=== PATIENT | female | born 1940 | race Caucasian/White ===

== ENCOUNTER 2018-09-11 07:30 | Inpatient (IN) | payer OTHER ==
[~2018-09-11] VITALS: Ht 175.3 cm; Wt 68.6 kg
[2018-09-11 07:31] VITALS: BP 112/50
[2018-09-11 07:47] LABS: HEMOGLOBIN 12.6 gm/dL (12.0-15.0); MCH 32.1 pg (26.0-34.0); RBC 3.92 mil/uL (4.20-5.00); RDW 14.3 % (10.5-14.5); WBC 6.4 thou/uL (4.0-11.0)
[2018-09-11 07:57] LABS: CALCIUM 9.3 mg/dL (8.5-10.1); CREATININE 0.9 mg/dL (0.6-1.0); POTASSIUM 4.1 mmol/L (3.5-5.1)
[2018-09-11 08:04] LABS: ALBUMIN 3.7 g/dL (3.4-5.0); DIRECT BILIRUBIN 0.1 mg/dL (<0.1-0.3); TOTAL BILIRUBIN 0.5 mg/dL (<0.1-1.0); TOTAL PROTEIN 6.8 g/dL (6.4-8.2)
[2018-09-11 09:22] VITALS: BP 118/91
[2018-09-11 10:04] VITALS: BP 114/73
[2018-09-11 11:00] VITALS: BP 124/86
--- NOTE | 2018-09-11 11:55 | NUR ---
RECEIVED OT ORDER FOR EVALUATION. WILL AWAIT ORTHO CONSULT AND POST-OP ORDERS IF SURGERY IS INDICATED.
--- NOTE | 2018-09-11 12:32 | NUR ---
PT RECIEVED TO RM 417 AT 1030 FROM THE ER. PT IN NO PAIN. LT ANKLE FX AFTER FALLING IN THE SHOWER. PT HAS DEMEMTIA AND VERY FORGETFUL. SISTER, PEREZ AND PT SON DPOA-SISTER TO BRING COPY. FRACTURE SET UNDER KETAMINE IN THE ER AND SPLINT APPLIED. PT NOTED TO HAVE IRREGULAR HEART BEAT AND WILL BE TRANSFERRED TO [facility] TO ENABLE TELE MONITORING.
[2018-09-11 14:20] VITALS: BP 99/44
[2018-09-11] MEDS ORDERED: RAZADYNE ER16 MG PO (15:29)
[2018-09-11] MEDS ORDERED: DIGOXIN125 MCG PO (15:30)
[2018-09-11] MEDS ORDERED: CO Q-10100 MG PO (15:30)
[2018-09-11] MEDS ORDERED: WELLBUTRIN SR100 MG PO (15:31)
[2018-09-11] MEDS ORDERED: VITAMIN D2000 UNIT PO (15:31)
[2018-09-11] MEDS ORDERED: LASIX 20 MG TAB20 MG PO (15:32)
[2018-09-11] MEDS ORDERED: VITAMINC500 PO (15:32)
[2018-09-11] MEDS ORDERED: POTASSIUM CHLO20 ME2 PO (15:33)
[2018-09-11] MEDS ORDERED: ZOFRAN ODT4 MG PO (15:33)
[2018-09-11] MEDS ORDERED: XANAX 0.25 MG0.25 MG PO (15:34)
[2018-09-11] MEDS ORDERED: MELATONIN3 MG PO (15:34)
[2018-09-11] MEDS ORDERED: COLACE100 MG PO (15:35)
[2018-09-11] MEDS ORDERED: IMODIUM A-D2 M1 PO (15:36)
[2018-09-11] MEDS ORDERED: MILK OF MA400 MG/5 M PO (15:37)
[2018-09-11] MEDS ORDERED: BISACODYL SUPP10 MG RECTAL (15:37)
[2018-09-11] MEDS ORDERED: CORLANOR7.5 MG PO (15:39)
[2018-09-11] MEDS ORDERED: PEPCID20 MG PO (15:39)
[2018-09-11] MEDS ORDERED: ZOLOFT25 MG PO (15:40)
[2018-09-11] MEDS ORDERED: NAMENDA XR28 MG PO (15:41)
[2018-09-11] MEDS ORDERED: VITAMIN B122500 MCG SUBLING (15:41)
[2018-09-11] MEDS ORDERED: TYLENOL325 M1 PO (15:43)
[2018-09-11] MEDS ORDERED: SENIOR TABS1 EACH PO (15:44)
--- NOTE | 2018-09-11 16:10 | EKG ---
[address] [place] [address] ELECTROCARDIOGRAM REPORT Name: EDITH OWENS Room #: 454-P ADM IN M.R.#: [id number] ������������������ Admission: 09/11/18 ������������������ Attend Phys: Panchito Esparza MD Discharge: ������������������ Date of : 38 Report #: [id number] ����������������������������������������������������������������� [id number] THIS REPORT FOR: //name// [facility] ED Test Date: 2018-09-11 Test Time: 07:46:39 Pat Name: EDITH OWENS Department: Room: [facility] Gender: F Compliance Representative: WALI : 1940 Requested By: Sonya Jaramillo Order Number: [id number] MD: Kadeem Cabrera Measurements Intervals [place] Rate: 75 P: 62 MI: 233 QRS: 67 QRSD: 94 T: 188 QT: 470 QTc: 470 Interpretive Statements Sinus rhythm Supraventricular bigeminy Anteroseptal infarct, age indeterminate No previous ECG available for comparison Electronically Signed On 09-11-2018 16:10:43 CDT by Kadeem Cabrera [email or web address] ��������������������������������������������� <ELECTRONICALLY SIGNED> ���������������������������������������� By: Kadeem Cabrera MD ��������������������������������������������� 09/11/18 1610 5 5 Kadeem Cabrera MD /ALTA
--- NOTE | 2018-09-11 16:27 | 2DMMODE ---
[facility] [place] [address] 2 D/M-MODE ECHOCARDIOGRAM Name: EDITH OWENS Room #: 454-P [facility] IN M.R.#: [id number] ������������� Admission: 09/11/18 ������������� Attend Phys: Panchito Esparza, Discharge: ��� ������������� ��� Date of : 38 Date of Service: 09/11/18 1627 �� Report #: [id number] �������� ��������������������������������������������[id number] THIS REPORT FOR: //name// APPROVED REPORT Study performed: 09/11/2018 15:33:18 EXAM: Comprehensive 2D, Doppler, and color-flow Echocardiogram Patient Location: Bedside Status: KRYSTAL BSA: 1.83 HR: 88 bpm BP: 99/44 mmHg Rhythm: IRREGULAR Other Information Study Quality: Good Indications Arrhythmia, surgery clearance. Hx: CABG, AVR. 2D Dimensions RVDd: 40.98 mm IVSd: 6.08 (7-11mm) LVOT Diam: 19.95 (18-24mm) LVDd: 53.10 mm PWd: 10.53 (7-11mm) LVDs: 47.41 (25-40mm) Aortic Root: 33.32 mm Volumes Left Atrial Volume (Systole) Single Plane 4CH: 85.32 mL Single Plane 2CH: 103.46 mL LA ESV Index: 55.00 mL/m2 Aortic Valve AoV Peak Juanpablo.: 2.68 m/s AO Peak Gr.: 28.70 mmHg LVOT Max P.10 mmHg AO Mean Gr.: 16.00 mmHg AO V2 Mean: 1.90 m/s LVOT Max V: 0.72 m/s AO V2 VTI: 50.71 cm DARRYL Vmax: 0.84 cm2 Mitral Valve E/A Ratio: 3.2 [facility] [address] [place] [place] [address] 2 D/M-MODE ECHOCARDIOGRAM Name: EDITH OWENS Room #: 454-P ADM IN .R.#: [id number] ������������� Admission: 09/11/18 ������������� Attend Phys: Panchito Esparza, Discharge: ��� ������������� ��� Date of : 38 Date of Service: 09/11/18 1627 �� Report #: [id number] �������� ��������������������������������������������[id number] MV Decel. Time: 127.08 ms MV E Max Juanpablo.: 1.34 m/s MV A Juanpablo.: 0.42 m/s MV PHT: 36.85 ms IVRT: 58.82 ms Pulmonary Valve PV Peak Juanpablo.: 0.96 m/s PV Peak Gr.: 3.69 mmHg Tricuspid Valve TR Peak Juanpablo.: 3.70 m/s RAP Estimate: 10.00 mmHg TR Peak Gr.: 55.00 mmHg PA Pressure: 65.00 mmHg Left Ventricle The left ventricle is normal size. There is global hypokinesis of the left ventricle. There is normal left ventricular wall thickness. Left ventricular systolic function is severely decreased. LVEF is 30%. This study is not technically sufficient to allow evaluation of the LV diastolic function. Right Ventricle The right ventricle is normal size. Right ventricle is mildly hypokinetic. Atria Left atrium is severely dilated. Right atrium is mildly dilated. Aortic Valve Bioprosthetic aortic valve is present. (Size/manufacture unknown) Peak gradient of 24mmHg mean of 14mmHg. Trace aortic regurgitation. Mitral Valve Mitral valve leaflets are moderately thickened. Moderate to severe mitral regurgitation Tricuspid Valve The tricuspid valve is normal in structure. Moderate to severe tricuspid regurgitation. Estimated PAP is 65mmHg. Pulmonic Valve The pulmonary valve is normal in structure. Mild pulmonic regurgitation. [facility] [address] [place] [address] 2 D/M-MODE ECHOCARDIOGRAM Name: EDITH OWENS Room #: 454-P ADM IN M.R.#: [id number] ������������� Admission: 09/11/18 ������������� Attend Phys: Panchito Esparza, Discharge: ��� ������������� ��� Date of : 38 Date of Service: 09/11/18 1627 �� Report #: [id number] �������� ��������������������������������������������[id number] Great Vessels The aortic root is normal in size. The ascending aorta is normal in size. IVC is normal in size and collapses <50% with inspiration. Pericardium There is no pericardial effusion. <Conclusion> The left ventricle is normal size. LVEF is 30%. There is global hypokinesis of the left ventricle. Left atrium is severely dilated. Right atrium is mildly dilated. Bioprosthetic aortic valve is present. (Size/manufacture unknown) Peak gradient of 24mmHg mean of 14mmHg. Trace aortic regurgitation. Mitral valve leaflets are moderately thickened. Moderate to severe mitral regurgitation The tricuspid valve is normal in structure. Moderate to severe tricuspid regurgitation. Estimated PAP is 65mmHg. The pulmonary valve is normal in structure. Mild pulmonic regurgitation. There is no pericardial effusion. ��������������������������������������������� <ELECTRONICALLY SIGNED> ���������������������������������������� By: Pilo Webb MD ��������������������������������������������� 09/11/18 1627 1627 1627 Pilo Webb MD /INF
[2018-09-11 19:48] VITALS: BP 94/50
[2018-09-12] VITALS (9 sets, daily range): BP systolic 90–114; BP diastolic 38–69
--- NOTE | 2018-09-12 05:04 | NUR ---
Pt. rested quietly at intervals during the night when checked on during frequent rounds. She c/o pain to her left ankle and po pain meds given (see emar) with some relief. Left ankle soft splint clean,dry and intact. Ice packs applied to the area throughout the shift. Bed alarm is on.
--- NOTE | 2018-09-12 11:10 | HC ---
[facility] [place] [address] CONSULTATION Name: EDITH OWENS Room #: 454-P [facility] IN ..#: [id number] Admission: 09/11/18 ������������������ Attend Phys: Panchito Esparza MD Discharge: ������������������ Date of : 39 Report #: [id number] THIS REPORT FOR: //name// CC: FAM unknown Panchito Esparza DATE OF SERVICE: 09/11/2018 CHIEF COMPLAINT: Left ankle fracture, status post fall. HISTORY OF PRESENT ILLNESS: The patient is a pleasantly confused 78-year-old female who was admitted through the Emergency Department at [facility] yesterday status post fall in the shower. The patient reports that she does not remember having a fall recently, but has been told that she fell, so she is aware. She says that she hurt her ankle in the fall, but is unsure of the actual injury to the ankle. The patient denies any other pain, shortness of breath or loss of consciousness with the fall. The patient reports that she typically ambulates without assistance prior to this fall, although the patient is an unreliable historian and there is no family at bedside at the time of consult. ALLERGIES: No known drug allergies. MEDICATIONS: Please see medical record for complete list of medications. PAST MEDICAL AND SURGICAL HISTORY: Significant for CAD, status post CABG, advanced dementia, COPD. SOCIAL HISTORY: The patient denies any drug, tobacco or alcohol use. She resides at [facility] and per patient reports she typically ambulates without assistance. PHYSICAL EXAMINATION: VITAL SIGNS: Temperature 36.9, blood pressure 91/40, pulse oximetry 98%, height 175 cm, weight 68 kilos. GENERAL: The patient is awake and alert, in no acute distress. EXTREMITIES: Left lower extremity is neurovascularly intact; calf, proximal to the splint, is soft and nontender. Splint appears to be fitting well, no signs of skin breakdown. The patient is able to wiggle toes distal to splint and is neurovascularly intact distal to the splint. Right lower extremity is neurovascularly intact, calf soft and nontender. LABORATORY DATA: White blood cell count 6.4, red blood cell count 3.9, hemoglobin 12.6, BUN 25, creatinine 0.9. IMAGING: Post-reduction views of the ankle performed in the Emergency [address] [address] CONSULTATION Name: EDITH OWENS Room #: 454-P [facility] IN M.R.#: [id number] Admission: 09/11/18 ������������������ Attend Phys: Panchito Esparza MD Discharge: ������������������ Date of : 39 Report #: [id number] Department yesterday show interval reduction and casting of the distal fibular and medial malleolar fractures and reduction of the ankle, subluxation/dislocation. The alignment is near anatomic. Chest x-ray, impression shows no acute cardiopulmonary abnormality identified. Echocardiogram performed on 09/11/2018 shows LVEF of 30%. PLAN: Discussed the patient's diagnosis and treatment options today with the patient. Discussed risks, benefits, alternatives to treatment and the patient has elected to proceed with open reduction and internal fixation of left trimalleolar ankle fracture. She has been seen yesterday by Cardiology Services, who ordered an echocardiogram, following the results of this, they reported that her ejection fraction is 30% and that she has been cleared from a cardiovascular standpoint for surgery. We will plan to proceed with left ankle open reduction and internal fixation of medial and lateral malleoli fractures later this morning. We discussed that the patient will be nonweightbearing postoperatively, we also discussed the need for followup in the outpatient clinic to assess fracture healing. We will plan on proceeding with surgery later this morning. ��������������������������������������������� <ELECTRONICALLY SIGNED> ���������������������������������������� By: LYUDMILA Collins ��������������������������������������������� 09/12/18 1110 0755 0902 LYUDMILA Colilns /nt
--- NOTE | 2018-09-12 11:33 | NUR ---
TO OR AT 0930. SISTER IS POA AND GAVE VERBAL CONSENT OVER THE PHONE FOR SURGICAL CONSENT. PATIENT IS ORIENTED TO NAME ONLY - REORIENTS BUT VERY FORGETFUL.
--- NOTE | 2018-09-13 03:29 | NUR ---
ASSUMED CARE AROUND 1900. AXOX4. L ANKLE SX. ELEVATED. NO S/S ACUTE DISTRESS NOTED OR REPORTED AT THIS TIME. WILL CONT TO MONITOR FOR ANY CHANGES IN CONDITION.
[2018-09-13 04:48] VITALS: BP 101/46
[2018-09-13 07:25] VITALS: BP 106/59
--- NOTE | 2018-09-13 13:39 | NUR ---
DISCHARGE PLANNING. POST ACUTE CARE RECOMMENDED AT DISCHARGE. PATIENT REFERRAL FAXED TO [facility]. CALL RECEIVED FROM JOELLE. ACCEPTING OF PATIENT AT DISCHARGE. ANTICIPATED DC FOR TOMORROW. JOELLE AWARE. WILL COMPLETE DISCHARGE NEEDS AND FACILITATE TRANSPORTATION ONCE DISCHARGE ORDERS ARE COMPLETED PER ATTENDING. UNIT CM/SW AWARE.
--- NOTE | 2018-09-13 14:21 | NUR ---
PT ADMITTED RELATED TO L ANKLE FRACTURE; S/P ORIF WITH CAST. CM REVIEWED CHART AND SPOKE WITH CARE TEAM. CM CALLED PT'S SON/DPOA JOSE ANTONIO RUIZ AND HE INDICATED THAT SAMPLE WRAPPER PT HAD BEEN LIVING AT [facility] IN ASSISTED LIVING. HE INDICATED THAT PT HAD NOT BEEN USING ANY ASSISTIVE DEVICES SAMPLE WRAPPER AND THAT SHE HADN'T HAD ANY HOME HEALTH. HE INDICATED THAT HE WOULD BE RECEPTIVE TO POST ACUTE CARE STAY AT [facility] IF IT WAS RECEOMMENDED. CM TO FOLLOW INDICATED WITH DC PLANNING.
[2018-09-13 14:48] VITALS: BP 97/48
--- NOTE | 2018-09-13 16:56 | NUR ---
QUIET UNEVENTFUL DAY. STATES MINIMAL PAIN. SAT UP IN CHAIR FOR SEVERAL HOURS. TOLERAING DIET. UP TO BS WITH [address] ASSIST[address] FALL PRECAUTIONS IN PLACE. LEFT ANKLE DRESSING/SPLINT INTACT. HAVE MONITORED CLOSELY.
[2018-09-13 20:00] VITALS: BP 112/42
[2018-09-14 04:46] VITALS: BP 109/57
--- NOTE | 2018-09-14 05:43 | NUR ---
ASSUMED CARE OF PT AT 1900. A&O, ABLE TO ANSWER ORIENTATION QUESTIONS AND RESPONDED TO QUESTIONS W/ RELATED CONTENT. STATED PAIN WAS TOLERABLE MOST OF THE NOC UNTIL SHE COULD NOT SLEEP DUE TO PAIN. PAIN MED GIVEN X1, PT ABLE TO SLEEP. TOLERATED PAIN MED WELL, EASILY AROUSABLE AND VS STABLE. IV INFILTRATED. SHE REALLY DID NOT WANT A NEW ONE PLACED. CONTACTED STONER OUT, FLUIDS D/C'D AND OK TO LEAVE IV OUT AT THIS TIME DUE TO PT REQUEST, ADEQUATE ORAL INTAKE AND STABLE VS. DRESSING ON L LE C/D/I. ABLE TO TRANSFER WELL. CURRENTLY RESTING. PROGRESSING WELL TOWARDS POC GOALS.
[2018-09-14 08:37] VITALS: BP 114/76
[2018-09-14] MEDS ORDERED: MIRALAX17 GM PO (13:41)
[2018-09-14] MEDS ORDERED: ENOXAPARIN40 MG/0.1 SUBQ (13:41)
[2018-09-14] MEDS ORDERED: IPRAT-ALBUT 0.5-3 ML INH (13:41)
[2018-09-14] MEDS ORDERED: LIPITOR10 MG PO (13:41)
[2018-09-14 14:39] VITALS: BP 102/61
--- NOTE | 2018-09-14 15:14 | NUR ---
Assumed pt care this am, pt is oriented to self only. No IV access was noted. All po medication was taken. Pt is able to transfer from bed to the commode and is able to sit on the recliner for a few hours. Left leg dressing intact no draininage noted. No s/s of acute distress no complaints or discomnfort was verbalized by the pt. DC orders given, pt to go back to [facility] pt to be picked up at 4pm today. Will call to give report.
--- NOTE | 2018-09-18 11:42 | O ---
[facility] [place] [address] OPERATIVE REPORT Name: EDITH OWENS Room #: 454-P [facility] IN M.R.#: [id number] Admission: 09/11/18 ������������������ Attend Phys: Panchito Esparza MD Discharge: 09/14/18 ������������������ Date of : 39 Report #: [id number] THIS REPORT FOR: //name// CC: FAM unknown Panchito Esparza PREOPERATIVE DIAGNOSIS: Trimalleolar ankle fracture dislocation, status post reduction. POSTOPERATIVE DIAGNOSIS: Trimalleolar ankle fracture dislocation, status post reduction. PROCEDURE PERFORMED: Open reduction internal fixation of medial and lateral malleolar fractures. SURGEON: Maury Finch MD. SENIOR OCCUPATIONAL THERAPIST: Karmen Benton PA-C. ANESTHESIA: General with preoperative ultrasound-guided block. FLUIDS: Please see anesthesia records. TOURNIQUET TIME: Approximately 30 minutes at 300 mmHg. ESTIMATED BLOOD LOSS: Approximately 10 mL. IMPLANTS UTILIZED: Synthes 4.0 partially threaded cancellous screws for the medial malleolus and a 3.5 semi-third tubular plate for the lateral malleolus. DESCRIPTION OF PROCEDURE: After proper identification of the patient and operative site in preoperative holding area, the operative site was signed by myself. Also discussed the patient's injury and the risks, benefits, alternatives and potential complications of her injury and treatment options with her son, Juan Pearl. After discussing these, the patient and son wished to proceed with the above noted intervention. We discussed the expected postoperative course and period of immobilization and nonweightbearing as well. After satisfactory block, the patient was brought back to the operative suite. After induction of satisfactory general anesthesia, tourniquet was applied to the upper thigh. The well-padded splint was then removed. Small area of fracture blisters were noted about the medial aspect of the distal leg superior to the area of the planned incision for the medial malleolus. There is mild soft tissue swelling and ecchymosis, but the soft tissues appeared amenable to operative intervention. After the limb was sterilely prepped and draped in the usual manner, a direct lateral approach to the distal fibula was planned. Skin was incised sharply. Full thickness skin flaps were developed. A semi-third tubular plate was contoured. The patient had osteoporotic bone. Fracture was [address] [address] OPERATIVE REPORT Name: EDITH OWENS Room #: 454-P [facility] IN M.R.#: [id number] Admission: 09/11/18 ������������������ Attend Phys: Panchito Esparza MD Discharge: 09/14/18 ������������������ Date of : 39 Report #: [id number] reduced what appeared to be anatomically, no lag screw could be utilized and a 7-hole plate was applied. Eight cortices of fixation were obtained proximally and four cortices distally. The fragment was small enough that I could not get another cancellous screw in the distal fragment. This was reduced nicely. Mortise was well maintained. Images in the AP, mortise and lateral planes demonstrated satisfactory reduction. At this point, the wound was thoroughly irrigated with normal saline and was closed with 2-0 Vicryl and nereida. Next, the medial malleolus was approached. An incision overlying the comminuted medial malleolar fracture was noted. Greater saphenous vein and nerve were identified and protected with the fracture reduced as best as possible. Two 2.5-mm drill bits were inserted and across the fracture site, mortise was well maintained and two partially threaded 4.0-mm cancellous screws were inserted. They had reasonable purchase. Fracture appeared stable. Intraoperative radiographs in the AP, mortise and lateral planes verified satisfactory reduction. Posterior malleolar fracture was reduced nicely and was small enough that no operative intervention was felt needed. Wounds were irrigated and closed in a similar manner. A sterile dressing with bulky Hernandez cotton roll, posterior splint and sugar tong were applied overwrapped with an Stu bandage. At time of dictation, the patient was still in the operative suite with anticipated discharge to the recovery room in stable condition. ��������������������������������������������� <ELECTRONICALLY SIGNED> ���������������������������������������� By: Maury Finch MD ��������������������������������������������� 09/18/18 1142 1236 1314 Maury Finch MD /nt
== END 2018-09-14 16:44 | DRG 493 ==
LOC: ER 07:30 → 4E 09:09 → EROBS 09:09 → 4W 09:09 → 4E 10:23 → 4W 13:08
PROVIDERS: Emergency Medicine; ADMIT Internal Medicine
PROC: 0QSH04Z Reposition Left Tibia with Internal Fixation Device, Open Approach (ICD-10-PCS; principal; 2018-09-11)
PROC: 2W3RX1Z Immobilization of Left Lower Leg using Splint (ICD-10-PCS; principal; 2018-09-11)
PROC: 0QSK04Z Reposition Left Fibula with Internal Fixation Device, Open Approach (ICD-10-PCS; principal; 2018-09-11)
DX: S82.852A Displaced trimalleolar fracture of left lower leg, initial encounter for closed fracture (principal); I42.9 Cardiomyopathy, unspecified; F03.90 Unspecified dementia, unspecified severity, without behavioral disturbance, psychotic disturbance, mood disturbance, and anxiety; J44.9 Chronic obstructive pulmonary disease, unspecified; F41.9 Anxiety disorder, unspecified; F32.9 Major depressive disorder, single episode, unspecified; G43.909 Migraine, unspecified, not intractable, without status migrainosus; Z66 Do not resuscitate; I25.10 Atherosclerotic heart disease of native coronary artery without angina pectoris; K52.9 Noninfective gastroenteritis and colitis, unspecified; Z79.82 Long term (current) use of aspirin; Z79.899 Other long term (current) drug therapy; Z95.1 Presence of aortocoronary bypass graft; Z87.891 Personal history of nicotine dependence; W18.39XA Other fall on same level, initial encounter; Y93.E1 Activity, personal bathing and showering; Y92.89 Other specified places as the place of occurrence of the external cause; Y99.8 Other external cause status
CPT/HCPCS: 10040; 10045; 50010; 50101; 50343; 50386; 51131; 51412; 52124; 56525; 56667; 57091; 62110; 62900; 64039; 64041; 70005

== ENCOUNTER 2018-12-03 14:51 | Inpatient (IN) | payer OTHER ==
[~2018-12-03] VITALS: Ht 172.7 cm; Wt 68.5 kg
[~2018-12-03 14:51] MED LIST: BISACODYL SUPP10 MG RECTAL; CO Q-10100 MG PO; COLACE100 MG PO; CORLANOR7.5 MG PO; DIGOXIN125 MCG PO; ENOXAPARIN40 MG/0.1 SUBQ; IMODIUM A-D2 M1 PO; IPRAT-ALBUT 0.5-3 ML INH; LASIX 20 MG TAB20 MG PO; LIPITOR10 MG PO; MELATONIN3 MG PO; MILK OF MA400 MG/5 M PO; MIRALAX17 GM PO; NAMENDA XR28 MG PO; PEPCID20 MG PO; POTASSIUM CHLO20 ME2 PO; RAZADYNE ER16 MG PO; SENIOR TABS1 EACH PO; TYLENOL325 M1 PO; VITAMIN B122500 MCG SUBLING; VITAMIN D2000 UNIT PO; VITAMINC500 PO; WELLBUTRIN SR100 MG PO; XANAX 0.25 MG0.25 MG PO; ZOFRAN ODT4 MG PO; ZOLOFT25 MG PO
[2018-12-03 14:52] VITALS: BP 115/62
[2018-12-03 15:18] LABS: ABSOLUTE NEUTROPHILS 5.8 thou/uL (1.4-8.2); BASOPHILS 0.8 % (0.0-2.0); EOSINOPHILS 2.1 % (0.0-3.0); HEMATOCRIT 40.3 % (37.0-47.0); HEMOGLOBIN 12.9 gm/dL (12.0-15.0); LYMPHOCYTES 6.9 % (24.0-44.0); MCH 29.3 pg (26.0-34.0); MCHC 32.1 g/dL (28.0-37.0); MCV 91.3 fL (80.0-100.0); MONOCYTES 10.5 % (1.0-8.0); PLATELET COUNT 270 thou/uL (150-400); POLYS 79.7 % (36.0-66.0); RBC 4.42 mil/uL (4.20-5.00); RDW 14.7 % (10.5-14.5); WBC 7.3 thou/uL (4.0-11.0)
[2018-12-03 15:21] LABS: URINE BILIRUBIN NEGATIVE (Negative); URINE BLOOD TRACE (Negative); URINE CLARITY CLEAR; URINE COLOR YELLOW; URINE GLUCOSE-RANDOM* NEGATIVE (Negative); URINE KETONES NEGATIVE (Negative); URINE LEUKOCYTES TRACE (Negative); URINE NITRITE NEGATIVE (Negative); URINE PROTEIN (DIPSTICK) NEGATIVE (Negative); URINE SPECIFIC GRAVITY 1.015 (1.005-1.035); URINE UROBILINOGEN 0.2 E.U./dl (0.2-1.0)
[2018-12-03 15:27] LABS: CALCIUM 9.3 mg/dL (8.5-10.1); POTASSIUM 5.2 mmol/L (3.5-5.1)
[2018-12-03 15:33] LABS: ALBUMIN 3.3 g/dL (3.4-5.0); TOTAL BILIRUBIN 0.9 mg/dL (<0.1-1.0); TOTAL PROTEIN 6.7 g/dL (6.4-8.2)
[2018-12-03] MEDS ORDERED: NAMENDA XR28 MG PO (16:57)
[2018-12-03] MEDS ORDERED: KEFLEX500 M2 PO (17:01)
[2018-12-03 17:42] VITALS: BP 120/61
[2018-12-03 17:53] VITALS: BP 116/71
--- NOTE | 2018-12-03 17:53 | NUR ---
INBENEDICTO RN REQUESTS TO CALL ME BACK IN 5 MINUTES
[2018-12-03 19:13] VITALS: BP 110/58
[2018-12-04 03:45] VITALS: BP 91/40
[2018-12-04 03:58] LABS: HEMATOCRIT 34.6 % (37.0-47.0); HEMOGLOBIN 11.3 gm/dL (12.0-15.0); MCH 29.8 pg (26.0-34.0); MCHC 32.7 g/dL (28.0-37.0); RBC 3.8 mil/uL (4.20-5.00); RDW 14.6 % (10.5-14.5); WBC 9.3 thou/uL (4.0-11.0)
[2018-12-04 04:02] LABS: CALCIUM 8.4 mg/dL (8.5-10.1); CREATININE 0.9 mg/dL (0.6-1.0)
[2018-12-04 04:16] LABS: POTASSIUM 3.1 mmol/L (3.5-5.1)
[2018-12-04 08:41] VITALS: BP 91/34
--- NOTE | 2018-12-04 08:43 | EKG ---
[place] [address] [facility] [place] [address] ELECTROCARDIOGRAM REPORT Name: EDITH OWENS Room #: 216-P ADM IN M.R.#: [id number] ������������������ Admission: 12/03/18 ������������������ Attend Phys: Teto Blakely MD Discharge: ������������������ Date of : 38 Report #: [id number] ����������������������������������������������������������������� [id number] THIS REPORT FOR: //name// [facility] ED Test Date: 2018-12-03 Test Time: 15:30:07 Pat Name: EDITH OWENS Department: Room: 216 P Gender: F Incoming Freight Clerk: MARIEL : 1940 Requested By: Sonya Jaramillo Order Number: [id number] MD: Olman Seaman Measurements Intervals [place] Rate: 67 P: 31 MS: 203 QRS: 49 QRSD: 94 T: 209 QT: 415 QTc: 438 Interpretive Statements Sinus rhythm Low voltage Anteroseptal infarct, old Nonspecific ST and T wave abnormality Compared to ECG 09/11/2018 07:46:39 Low QRS voltage now present Atrial premature complex(es) no longer present Electronically Signed On 12-04-2018 8:43:25 CDT by Olman Seaman [email or web address] ��������������������������������������������� <ELECTRONICALLY SIGNED> ���������������������������������������� By: Olman Seaman MD, [facility] ��������������������������������������������� 12/04/18 0843 1530 1530 Olman Seaman MD, [facility] /EPI
--- NOTE | 2018-12-04 10:59 | NUR ---
PT BACK FROM MRI.
[2018-12-04 12:15] VITALS: BP 101/46
[2018-12-04 16:14] VITALS: BP 107/60
--- NOTE | 2018-12-04 19:33 | NUR ---
PT WORKED WITH PT/OT TODAY. COMPLETED DRESSING CHANGE BILAT LOWER EXT. BEDSIDE REPORT GIVEN TO NUVIA MONTEJO.
[2018-12-04 19:42] VITALS: BP 119/5
[2018-12-05 03:42] VITALS: BP 100/54
[2018-12-05 04:52] LABS: ABSOLUTE NEUTROPHILS 4.9 thou/uL (1.4-8.2); BASOPHILS 0.7 % (0.0-2.0); EOSINOPHILS 2.2 % (0.0-3.0); HEMATOCRIT 35.6 % (37.0-47.0); HEMOGLOBIN 11.7 gm/dL (12.0-15.0); LYMPHOCYTES 8.7 % (24.0-44.0); MCH 29.8 pg (26.0-34.0); MCHC 32.9 g/dL (28.0-37.0); MCV 90.6 fL (80.0-100.0); MONOCYTES 10.3 % (1.0-8.0); PLATELET COUNT 276 thou/uL (150-400); POLYS 78.1 % (36.0-66.0); RBC 3.93 mil/uL (4.20-5.00); RDW 14.7 % (10.5-14.5); WBC 6.2 thou/uL (4.0-11.0)
[2018-12-05 05:03] LABS: CALCIUM 8.5 mg/dL (8.5-10.1); MAGNESIUM 1.8 mg/dL (1.8-2.4); POTASSIUM 3.6 mmol/L (3.5-5.1)
--- NOTE | 2018-12-05 06:12 | NUR ---
Pt Confused alert AO x1. Denies pain. 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 head of bed elevated, oxygen 1 L for comfort. Pt receiving Lasix. fernando catheter in place. bathroom by bedside commode.will copntinue to follow plan of care.
--- NOTE | 2018-12-05 07:04 | H ---
[facility] [place] [address] HISTORY AND PHYSICAL Name: EDITH OWENS Room #: 216-P ADM IN M.R.#: [id number] Admission: 12/03/18 ������������������ Attend Phys: Teto Blakely MD Discharge: ������������������ Date of : 39 Report #: [id number] THIS REPORT FOR: //name// CC: Teto MEJIA physician/PCP DATE OF SERVICE: 12/03/2018 HISTORY OF PRESENT ILLNESS: The patient is a 78-year-old female who is known to have a history of a trimalleolar ankle fracture in addition to advanced dementia without behavioral disturbances. The patient was brought to the Emergency Room with a complaint of increasing swelling of the lower extremities and the abdomen in addition to the lower part of the back. The patient was on by mouth Lasix in the facility, but without any improvement of her symptoms. For this reason, she was brought to the Emergency Room to be evaluated. The patient herself is not able to provide me with any information, but the patient was lying flat on her back without any complaint of shortness of breath. The patient denies any shortness of breath or cough. She denies any palpitation. PAST MEDICAL HISTORY: Significant for the above-mentioned fracture of the ankle that was treated with ORIF. The patient has a history of advanced dementia, gastroesophageal reflux disease, chronic systolic congestive heart failure, unspecified atrial fibrillation, anxiety disorder, insomnia, and hyperlipidemia. The patient had an echocardiogram done in 09/2018 that showed ejection fraction of 30% with hypokinesia of the left ventricle. MEDICATIONS: Reviewed and reconciled. ALLERGIES: No known drug allergies. SOCIAL HISTORY: The patient is living in a Memory Care Assisted Living at [facility]. No recent history of smoking, alcohol use, or drug use. REVIEW OF SYSTEMS: Negative besides what was mentioned above. PHYSICAL EXAMINATION: VITAL SIGNS: Showed a temperature of 36.7, pulse 72, respirations 13, and blood pressure 115/62. HEAD AND NECK: Unremarkable. NECK: Supple. LUNGS: Clear to auscultation with good air entry bilaterally. CARDIAC: S1, S2, without any murmur or gallop. ABDOMEN: Benign. Bowel sounds were positive. EXTREMITIES: A +3 edema bilaterally. The patient's edema extends to the mid back area. The patient has left ankle being dressed because of a wound on the ankle. [address] [address] HISTORY AND PHYSICAL Name: EDITH OWENS Room #: 216-P [facility] IN M.R.#: [id number] Admission: 12/03/18 ������������������ Attend Phys: Teto Blakely MD Discharge: ������������������ Date of : 39 Report #: [id number] LABORATORY DATA: On arrival to the hospital, CBC with diff showed white count of 7.3, hemoglobin 12.9, hematocrit 40.3, platelet count 270, and neutrophils are 79%. The patient's urinalysis showed a trace of blood and trace leukocytes. A comprehensive metabolic panel showed a sodium of 133, potassium 5.2, chloride 98, bicarbonate 22, BUN 32, creatinine 1, glucose 104, AST 57, total bilirubin 0.9, alkaline phosphatase 104, ALT 43, total protein 6.7, and albumin 3.3. The patient's lactic acid is 2.1. BNP was 16,431. Chest x-ray showed new bibasilar infiltrates and atelectasis with a lenay-dy-vuwameng size bilateral effusions, mild diffuse interstitial prominence, with a possibility of interstitial pulmonary edema and congestive heart failure. A 12-lead EKG showed sinus rhythm with low voltage on the extremity and precordial leads, anteroseptal infarct, old borderline repolarization abnormality. Repeated lactic acid was 1.7. Repeated CBC showed white count of 9.3, hemoglobin 11.3, hematocrit 34.6, and platelet count 251. The patient's repeated basic metabolic panel showed a sodium of 140, potassium 3.1, chloride 102, bicarbonate 24, BUN 24, and creatinine 0.9. ASSESSMENT AND PLAN: 1. Brdob-zf-bxwnvdk systolic congestive heart failure. 2. Atrial fibrillation. 3. Advanced dementia. 4. Ulcer of the left ankle. The patient was admitted to the hospital with the above-mentioned diagnoses. I am switching the patient's Lasix to IV, having a Scott catheter placed for accurate I's and O's. We are consulting Cardiology on the patient. The patient to resume her medications. The patient to have a wound consult for the wound on the ankle. We will continue to monitor the patient's electrolytes very closely. The patient to have replacement of her potassium. ��������������������������������������������� <ELECTRONICALLY SIGNED> ���������������������������������������� By: Teto Blakely MD ��������������������������������������������� 12/05/18 0704 0713 0743 Teto Blakely MD /nt
[2018-12-05 08:18] VITALS: BP 114/45
--- NOTE | 2018-12-05 08:24 | HC ---
[facility] [place] [address] CONSULTATION Name: EDITH OWENS Room #: 216-P ADM IN M.R.#: [id number] Admission: 12/03/18 ������������������ Attend Phys: Teto Blakely MD Discharge: ������������������ Date of : 39 Report #: [id number] THIS REPORT FOR: //name// CC: Teto MEJIA physician/PCP DATE OF SERVICE: 12/04/2018 CHIEF COMPLAINT: Chronic ulceration versus surgical wounds to the lower extremities. HISTORY OF PRESENT ILLNESS: This is a 78-year-old female patient with a history of advanced dementia who sustained a trimalleolar fracture to her left ankle and underwent open reduction and internal fixation in 09/2018. She is admitted through the Emergency Department with increased swelling to the lower extremities as well as persistent ulceration to the left ankle and some to the right leg. She is unable to provide any information about herself due to her dementia. PAST MEDICAL HISTORY: Positive for history of a trimalleolar fracture of the left ankle, status post open reduction and internal fixation in 09/2006, has a history of advanced dementia, gastroesophageal reflux disease, chronic systolic congestive heart failure, atrial fibrillation, anxiety disorder, insomnia and hyperlipidemia. Her echocardiogram in 09/2018 showed an ejection fraction of 30% with hypokinesis of the left ventricle. ALLERGIES: No known drug allergies. SOCIAL HISTORY: The patient is living in a Memory Care Unit at [facility]. No recent history of alcohol or tobacco use is noted. REVIEW OF SYSTEMS: Unobtainable due to the patient's level of dementia. CURRENT MEDICATIONS: Include ipratropium and albuterol, vitamin C, aspirin, atorvastatin, bupropion, cephalexin, vitamin D, vitamin B12, digoxin, enoxaparin, famotidine, Lasix, melatonin, multivitamin, and sertraline. PHYSICAL EXAMINATION: VITAL SIGNS: At this time include temperature 36.4, pulse 80, respiratory rate 18, blood pressure 101/46. GENERAL: This is a chronically ill-appearing female patient, who appears to be in no obvious distress. She is mostly somnolent, awakens only slightly to her name being called. HEENT: Head is normocephalic. Nose and throat are clear. NECK: Supple. LUNGS: Diminished. [address] [address] CONSULTATION Name: EDITH OWENS Room #: 216-P ADM IN M.R.#: [id number] Admission: 12/03/18 ������������������ Attend Phys: Teto Blakely MD Discharge: ������������������ Date of : 39 Report #: [id number] HEART: Irregular. ABDOMEN: Soft. EXTREMITIES: Examination of the extremities demonstrate a minimally or nonpalpable distal pulses. She has erythema of both feet and ankles, partially may be some dependent rubor, but there is some warmth as well that would be suggestive of cellulitis. She has a large ulceration on the left lateral ankle. This may be along the original incision line from her open reduction and internal fixation. It appears to be infected. There is mix of some granulation and moderate fibrin on the surface. No exposed deep structures are noted. NEUROLOGIC: The patient appears to move symmetrically spontaneously. She does not answer any questions. Her level of orientation cannot be assessed. LABORATORY DATA: Sodium 140, potassium 3.1, chloride 102, CO2 24, BUN 24, creatinine 0.9, glucose 106, calcium is 8.4, albumin is 3.3. White blood cell count 9.3 with hemoglobin 11.3, hematocrit of 34.6. CLINICAL IMPRESSION: 1. Surgical wound versus ulceration of the left lateral ankle. 2. Wound infection and cellulitis, bilateral lower extremities. 3. Venous stasis dermatitis, bilateral lower extremities. 4. Advanced dementia. 5. History of trimalleolar fracture left ankle, status post open reduction and internal fixation, 09/2018. 6. Congestive heart failure. RECOMMENDATIONS: At this point in time, we will obtain culture and sensitivity from the left ankle. Recommend empiric antibiotic therapy, pending culture results. We will then recommend topical Silvadene, Xeroform, ABD, Kerlix and Stu wraps bilaterally. We will need to check arterial Dopplers of both lower extremities to evaluate her for inflow disease. Recommend continuation of other current medications. I appreciate being asked to see her in consultation. ��������������������������������������������� <ELECTRONICALLY SIGNED> ���������������������������������������� By: Brown Tiwari MD ��������������������������������������������� 12/05/18 0824 1237 0232 Brown Tiwari MD /nt
[2018-12-05 11:30] VITALS: BP 99/52
--- NOTE | 2018-12-05 12:28 | NUR ---
patient sleeping soundly sp with son. Patient resides at [facility]. Son reports she was to be evaled for memory care by [facility] yesterday. He reports her memory has deteriorated. Patient at [facility] 09/14-10/06. Discussed with son therapy recommmeds post acute care. Son questions why need for health center "IS is for therapy or anything to do with her heart." Discussed therapy and cont to monitor CHF but likely oral medications. Plan send referral for post acute at [facility].
--- NOTE | 2018-12-05 14:46 | NUR ---
VSS REMAINS NSR WITH 1% AV BLOCK LUNGS DIMINISHED AND CLEAR, O2 SAT RA IS 92-98%, PT C/O OF INTERMITTENT SOB. PT REMAINS ORINTED TO NAME AND HOSPITAL, PT VERY CONFUSED AND SHORT TERM. DIEURESING WELL WITH IV LASIX THROUGH [facility] WORKING WITH PT, WILL GET WALKING BOOT AN WILL BE ABLE TO DO WT BEARING ON LEFT ANKLE. WILL CONTINUE TO MONITER AND CARE FOR PT PER PLAN OF CARE
[2018-12-05 15:56] VITALS: BP 98/55
--- NOTE | 2018-12-05 16:03 | NUR ---
FAXED REFERRAL TO [facility] SPOKE WITH JOELLE IN ADM SHE RECEIVED REFERRAL AND WILL REVIEW. DCP TO FOLLOW.
[2018-12-05 19:36] VITALS: BP 92/47
--- NOTE | 2018-12-06 04:09 | NUR ---
ASSUMED CARE AT 1900. PT SLEEPY. A0 X1. DENIES PAIN. VITALS STABLE. FORGETFUL. PETERSON CATHETER IN PLACE.OTHER ASSESSMENTS DOCUMENTED. WILL CONTINUE DIURESING WITH IV LASIX. WILL CONTINUE TO MONITOR.
[2018-12-06 04:17] VITALS: BP 105/55
[2018-12-06 05:14] LABS: HEMATOCRIT 36.9 % (37.0-47.0); HEMOGLOBIN 11.9 gm/dL (12.0-15.0); MCH 29.4 pg (26.0-34.0); MCHC 32.2 g/dL (28.0-37.0); MCV 91.3 fL (80.0-100.0); RBC 4.04 mil/uL (4.20-5.00); WBC 6.9 thou/uL (4.0-11.0)
[2018-12-06 05:18] LABS: CALCIUM 8.8 mg/dL (8.5-10.1); POTASSIUM 4.2 mmol/L (3.5-5.1)
[2018-12-06 08:27] VITALS: BP 103/55
[2018-12-06 11:57] VITALS: BP 126/78
--- NOTE | 2018-12-06 12:43 | NUR ---
ASSUMED CARE OF PT APPROX 0715, ALERT TO SELF/BDATE, CONFUSED ON ALL OTHER, DID RETURN DEMO [employer] DRILL OPERATOR LIGHT USE YET SHE FORGETS FREQ ABOUT USING CALL LIGHT. REPORTS OF HARD STOOL PASSED THIS A.M. APPROX 1240 PT C/O BEING LIGHT HEADED, WAS BREATHING RAPIDLY YET WITH DEMO AND ENCOURAGEMENT SLOWED DOWN TO ABOUT 14 A MINUTE, IS EATING LUNCH AT THIS TIME. DARK URINE, ENCOURAGED TO HYDRATE WHICH SHE REACHES FOR HER GLASS OF WATER. CALLING DR. ESPOSITO TO LET HIM KNOW HOW SHE'S FEELING. LASIX WAS D/C'D AT SOME POINT. VS WNL OTHERWISE. WILL CONTINUE TO MONITOR
[2018-12-06 17:08] VITALS: BP 116/61
[2018-12-06 19:45] VITALS: BP 104/55
--- NOTE | 2018-12-07 01:04 | NUR ---
PT AT 0030 HAD 5 BEAT RUN V TACH. CHECKED ON PT AND SHE WAS ASYMPTOMATIC WITH. WILL MONITOR.
[2018-12-07 03:57] VITALS: BP 100/47
--- NOTE | 2018-12-07 04:44 | NUR ---
PT RESTING IN BED. SR W/ SLIGHT 1AVB. PT ON RA AND VSS. PT ABLE TO REPOSITION SELF IN BED. PT REMAINS WITH BLE DSG WRAPS IN PLACE. PT HAS HAD NO C/O PAIN DURING THIS SHIFT. PETERSON IN PLACE WITH GREAT OUTPUT.
[2018-12-07 05:14] LABS: ABSOLUTE NEUTROPHILS 4.4 thou/uL (1.4-8.2); BASOPHILS 0.8 % (0.0-2.0); EOSINOPHILS 4.2 % (0.0-3.0); HEMATOCRIT 37.3 % (37.0-47.0); HEMOGLOBIN 11.9 gm/dL (12.0-15.0); LYMPHOCYTES 11.2 % (24.0-44.0); MCH 28.9 pg (26.0-34.0); MCHC 31.8 g/dL (28.0-37.0); MCV 90.9 fL (80.0-100.0); MONOCYTES 11.4 % (1.0-8.0); PLATELET COUNT 276 thou/uL (150-400); POLYS 72.4 % (36.0-66.0); RBC 4.11 mil/uL (4.20-5.00); RDW 14.3 % (10.5-14.5); WBC 6.1 thou/uL (4.0-11.0)
[2018-12-07 05:21] LABS: POTASSIUM 4.2 mmol/L (3.5-5.1)
[2018-12-07 08:15] VITALS: BP 122/80
--- NOTE | 2018-12-07 08:46 | NUR ---
ASSUMED CARE OF PT APPROX 0715, REPORT OF REMOVING IV AND PETERSON, CALLED DR. ESPOSITO FYI, NO ORDERS. NOC NURSE RESTARTED IV AND WRAPPED. KEEPING PT HYDRATED W/SPRITE AND PRUNE JUICE WHICH SHE SEEMS TO ENJOY, APPEARS TIRED THIS A.M. YET STILL WITH THE TRYING TO GET OOB WITHOUT ASSISTANCE. DOES RETURN DEMO WITH CALL LIGHT, WILL HIT IT THEN WHEN NURSE ENTERS SHE SMILES SWEETLY AND STATES 'YOU TOLD ME TO HIT THE CALL LIGHT' WHEN ASKED WHAT SHE NEEDS SHE SAYS NOTHING. ASKS WHAT SHE SHOULD BE DOING. HAS PAPER AND PEN TO WRITE/DRAW. TURN Q 2. SEE SEPARATE INTERVENTIONS FOR ASSESSMENTS. ENCOURAGED HER TO CONTINUE TO USE THE CALL LIGHT FOR NEEDS
[2018-12-07 11:39] VITALS: BP 108/39
--- NOTE | 2018-12-07 13:53 | NUR ---
SW reviewed chart and spoke with nursing and attending physician's DIRECTOR OF PREMIUM SEAT SALES. Pt is progresssing towards goals for discharge. Discharge to [facility] is anticipated for tomorrow. strategic planner to fax updates and notify of anticipated discharge. SW is following to assist as needed with discharge planning.
[2018-12-07 20:27] VITALS: BP 108/38
[2018-12-08 00:25] VITALS: BP 107/51
--- NOTE | 2018-12-08 04:25 | NUR ---
ALERT.CONFUSED.TRIES TO GET OUT OF BED.BED ALARM IS ON FOR SAFETY.O2 2L NC.UP TO THE BEDSIDE COMMODE WITH ASSIST.INCONTINENT AT TIMES.MONITOR SHOWS SR WITH 1ST DEGREE AV BLOCK.WILL MONITOR AND CONTINUE POC.
[2018-12-08 04:50] VITALS: BP 95/47
[2018-12-08 05:16] LABS: HEMATOCRIT 34.9 % (37.0-47.0); HEMOGLOBIN 11.3 gm/dL (12.0-15.0); MCH 29.2 pg (26.0-34.0); MCHC 32.5 g/dL (28.0-37.0); RBC 3.88 mil/uL (4.20-5.00); RDW 14.7 % (10.5-14.5); WBC 5.4 thou/uL (4.0-11.0)
[2018-12-08 05:26] LABS: CREATININE 0.9 mg/dL (0.6-1.0); POTASSIUM 3.1 mmol/L (3.5-5.1)
[2018-12-08 07:22] VITALS: BP 112/66
[2018-12-08 15:38] VITALS: BP 93/45
--- NOTE | 2018-12-08 17:00 | NUR ---
ASSESSMENT CHARTED - MEDS PER JUL - PT ROSE MARIE DIET AND FLUIDS WITH NO CO'S OC PAIN OR NAUSEA. INCONTINENT OF URINE TODAY. PT SLEEPY THIS AM - UP TO THE CHAIR THIS AFTERNOON WITH ASSIST OF 2 PEOPLE. DRESSINGS TO LOWER EXTREMITIES COMPLETED - SEE DOCUMENTATION. POTASSIUM REPLACED THIS AM - NO CO'S AT THE PRESENT TIME. PT REAMINS PLEASANTLY CONFUSED. SON INTO SEE THIS AFTERNOON.
[2018-12-08 19:32] VITALS: BP 96/58
[2018-12-09 04:32] VITALS: BP 102/45
[2018-12-09 05:50] LABS: CALCIUM 9.2 mg/dL (8.5-10.1); CREATININE 1.1 mg/dL (0.6-1.0); MAGNESIUM 1.6 mg/dL (1.8-2.4); POTASSIUM 3.6 mmol/L (3.5-5.1)
--- NOTE | 2018-12-09 06:03 | NUR ---
ASSESSMENTS CHARTED. IMPULSIVE, FORGETS ABILITIES. FALL PRECAUTIONS IN PLACE. DRESSED WOUNDS ON BILATERAL LOWER EXTREMITIES. INFECTION IN WOUNDS, BEING TREATED WITH ANTIBIOTICS. HAD ON RUN OF VTACH - 20 BEATS DURING SHIFT. PATIENT SLEPT THROUGH EVENT. DENIES PAIN. PLAN IS TO RETURN TO MEMORY CARE UNIT AT [facility] WHEN STABLE.
[2018-12-09 07:57] VITALS: BP 124/57
[2018-12-09 12:44] VITALS: BP 122/70
[2018-12-09 14:00] VITALS: BP 105/58
--- NOTE | 2018-12-09 16:08 | NUR ---
VSS NSR WITH 1% AV BLOCK LUNGS CLEAR AND DIMINISHED O2 SAT RA IS 97%, PT ALERT MAINLY BUT TENS TO BE DROWY IF NOT STIMULATED DURING DAY. UP IN CHAIR MOST OF DAY AND TOLERATED WELL, PT WEAK ON FEET GETTING UP WITH MOD ASSIST. WILL CONTINUE TO MONITER AND CARE FOR PT PER PLAN OF CARE
[2018-12-09 17:05] LABS: CALCIUM 9.5 mg/dL (8.5-10.1); CREATININE 1.3 mg/dL (0.6-1.0); MAGNESIUM 2.1 mg/dL (1.8-2.4); POTASSIUM 3.8 mmol/L (3.5-5.1)
[2018-12-09 19:02] VITALS: BP 83/44
[2018-12-09 19:03] VITALS: BP 84/46
[2018-12-10 03:26] VITALS: BP 100/45
[2018-12-10 04:08] LABS: CALCIUM 9.1 mg/dL (8.5-10.1); CREATININE 1.1 mg/dL (0.6-1.0); MAGNESIUM 1.9 mg/dL (1.8-2.4); POTASSIUM 3.7 mmol/L (3.5-5.1)
--- NOTE | 2018-12-10 06:24 | NUR ---
ALERT,CONFUSED.DENIES PAIN.UP WITH ASSIST TO THE BEDSIDE COMMODE.MONITOR SHOWS SR WITH 1ST DEGREE AVB.SLEPT MOST OF THE NIGHT.POSSIBILITY OF DISCHARGE TODAY.WILL MONITOR AND CONTINUE POC.
[2018-12-10] MEDS ORDERED: DOXYCYCLINE HYC50 MG PO (08:11)
[2018-12-10] MEDS ORDERED: AMOXICILLIN500 M1 PO (08:11)
[2018-12-10] MEDS ORDERED: COREG3.125 MG PO (08:12)
[2018-12-10] MEDS ORDERED: ASPIR 8181 MG PO (08:13)
[2018-12-10] MEDS ORDERED: KLOR-CON M2020 MEQ PO (08:13)
[2018-12-10] MEDS ORDERED: TORSEMIDE20 MG PO (08:14)
[2018-12-10] MEDS ORDERED: MAGNESIUM400 MG PO (08:14)
[2018-12-10] MEDS ORDERED: SSD CREAM 1% 5050 GM TOP (08:15)
[2018-12-10 08:24] VITALS: BP 108/52
--- NOTE | 2018-12-10 13:00 | NUR ---
PT DISCHARGING TODAY TO [facility] FAXED DC ORDERS/SUMMARY TO FACILITY. DC ORDERS RECEIVED AND TRANSPORT ARRANGED FOR 1300 TODAY. LEFT MSG WITH PT'S SON (CINDY) OF DC AND TIME OF TRANSPORT. UNIT NOTIFIED AND CHART COPY PER US. RN TO CALL REPORT TO [phone].
--- NOTE | 2018-12-10 13:08 | NUR ---
ASSESSMENT CHARTED - MEDS PER JUL - PT UP TO THE CHAIR FOR MEALS - ROSE MARIE DIET AND FLUIDS. DRESSINGS TO LEGS COMPLETED - PICS IN CHART. NO CO'S OF PAIN OR NAUSEA. PT PLEASANTLY CONFUSED - BACK TO [facility] THIS AFTERNOON - LEFT UNIT VIA WHEEL CHAIR ACCOMPANIED BY STAFF FROM [facility]. REPORT CALLED TO FACILITY PRIOR TO PATIENT TRANSFER.
== END 2018-12-10 13:11 | DRG 602 ==
LOC: ER 14:51 → 2N 17:09 → EROBS 17:09 → 2N 17:53
PROVIDERS: Emergency Medicine; Nurse Practitioner Adult Health; ADMIT Internal Medicine
DX: L03.116 Cellulitis of left lower limb (principal); I50.23 Acute on chronic systolic (congestive) heart failure; L97.329 Non-pressure chronic ulcer of left ankle with unspecified severity; E44.1 Mild protein-calorie malnutrition; I47.2 Ventricular tachycardia; I42.9 Cardiomyopathy, unspecified; L03.115 Cellulitis of right lower limb; F03.90 Unspecified dementia, unspecified severity, without behavioral disturbance, psychotic disturbance, mood disturbance, and anxiety; I25.10 Atherosclerotic heart disease of native coronary artery without angina pectoris; J44.9 Chronic obstructive pulmonary disease, unspecified; K21.9 Gastro-esophageal reflux disease without esophagitis; F41.9 Anxiety disorder, unspecified; E78.5 Hyperlipidemia, unspecified; I48.0 Paroxysmal atrial fibrillation; T81.89XA Other complications of procedures, not elsewhere classified, initial encounter; Y83.8 Other surgical procedures as the cause of abnormal reaction of the patient, or of later complication, without mention of misadventure at the time of the procedure; E87.6 Hypokalemia; E83.42 Hypomagnesemia; Z95.1 Presence of aortocoronary bypass graft; Z79.2 Long term (current) use of antibiotics; Z79.899 Other long term (current) drug therapy; Z95.2 Presence of prosthetic heart valve; Y92.89 Other specified places as the place of occurrence of the external cause; Z68.23 Body mass index [BMI] 23.0-23.9, adult
CPT/HCPCS: 10081

== ENCOUNTER 2019-03-16 22:17 | Inpatient (IN) | payer OTHER ==
[~2019-03-16] VITALS: Ht 172.7 cm; Wt 69.2 kg
[~2019-03-16 22:17] MED LIST changes: +AMOXICILLIN500 M1 PO; +ASPIR 8181 MG PO; +COREG3.125 MG PO; +DOXYCYCLINE HYC50 MG PO; +KEFLEX500 M2 PO; +KLOR-CON M2020 MEQ PO; +MAGNESIUM400 MG PO; +SSD CREAM 1% 5050 GM TOP; +TORSEMIDE20 MG PO
[2019-03-16 22:18] VITALS: BP 110/53
[2019-03-16] MEDS ORDERED: TORSEMIDE20 MG PO (22:29)
[2019-03-16] MEDS ORDERED: BACTRIM DS TAB1 EAC1 PO (22:32)
[2019-03-16 23:03] LABS: ABSOLUTE NEUTROPHILS 4.7 thou/uL (1.4-8.2); BASOPHILS 1.4 % (0.0-2.0); EOSINOPHILS 1.9 % (0.0-3.0); HEMATOCRIT 35.1 % (37.0-47.0); HEMOGLOBIN 11.3 gm/dL (12.0-15.0); LYMPHOCYTES 11.1 % (24.0-44.0); MCH 29.7 pg (26.0-34.0); MCHC 32.3 g/dL (28.0-37.0); MCV 91.9 fL (80.0-100.0); PLATELET COUNT 253 thou/uL (150-400); POLYS 73.6 % (36.0-66.0); RBC 3.82 mil/uL (4.20-5.00); RDW 17.9 % (10.5-14.5); WBC 6.4 thou/uL (4.0-11.0)
[2019-03-16 23:13] LABS: ANION GAP 11 mmol/L (7-16); BUN 29 mg/dL (7-18); CALCIUM 8.8 mg/dL (8.5-10.1); CHLORIDE 96 mmol/L (98-107); CO2 22 mmol/L (21-32); CREATININE 1.7 mg/dL (0.6-1.0); GLUCOSE 113 mg/dL (74-106); POTASSIUM 5.8 mmol/L (3.5-5.1); SODIUM 129 mmol/L (136-145)
[2019-03-16 23:22] LABS: TROPONIN-I <0.06 ng/mL (<0.06)
[2019-03-16 23:57] LABS: URINE BILIRUBIN NEGATIVE (Negative); URINE BLOOD NEGATIVE (Negative); URINE CLARITY CLEAR; URINE COLOR YELLOW; URINE GLUCOSE-RANDOM* NEGATIVE (Negative); URINE KETONES NEGATIVE (Negative); URINE LEUKOCYTES-REFLEX TRACE (Negative); URINE NITRITE-REFLEX NEGATIVE (Negative); URINE PROTEIN (DIPSTICK) NEGATIVE (Negative)
[2019-03-17] VITALS (7 sets, daily range): BP systolic 88–118; BP diastolic 55–75
[2019-03-17 00:17] LABS: AMP/METHAMP Negative (Negative); BARBITURATES Negative (Negative); BENZODIAZEPINES Negative (Negative); COCAINE Negative (Negative); METHADONE Negative (Negative); OPIATES Negative (Negative); PCP Negative (Negative)
[2019-03-17 06:11] LABS: HEMATOCRIT 35.6 % (37.0-47.0); HEMOGLOBIN 11.4 gm/dL (12.0-15.0); MCH 29.8 pg (26.0-34.0); PLATELET COUNT 248 thou/uL (150-400); RBC 3.83 mil/uL (4.20-5.00); RDW 17.8 % (10.5-14.5); WBC 5.8 thou/uL (4.0-11.0)
[2019-03-17 06:23] LABS: CALCIUM 8.7 mg/dL (8.5-10.1); CREATININE 1.6 mg/dL (0.6-1.0); POTASSIUM 5.2 mmol/L (3.5-5.1)
[2019-03-17 06:50] LABS: ABSOLUTE NEUTROPHILS 4.2 thou/uL (1.4-8.2)
[2019-03-17 06:51] LABS: ANISOCYTOSIS 1+
--- NOTE | 2019-03-17 10:23 | EKG ---
[address] [place] [address] ELECTROCARDIOGRAM REPORT Name: EDITH OWENS Room #: 215-P ADM IN M.R.#: [id number] Admission: 03/17/19 Attend Phys: Teto Blakely MD Discharge: Date of : 39 Report #: [id number] THIS REPORT FOR: //name// [facility] ED Test Date: 2019-03-17 Test Time: 00:16:57 Pat Name: EDITH OWENS Department: Room: 215 Gender: F Phlebotomist Supervisor/Instructor: BRAYDEN : 1940 Requested By: Kirby Loya Order Number: [id number] MD: Sammy Aguilar Measurements Intervals [place] Rate: 78 P: 79 AK: 236 QRS: 100 QRSD: 97 T: -72 QT: 362 QTc: 413 Interpretive Statements Sinus rhythm Prolonged AK interval Probable anterior infarct, age indeterminate Baseline wander in lead(s) V2 Compared to ECG 12/03/2018 15:30:07 First degree AV block now present ST (T wave) deviation no longer present Myocardial infarct finding still present Electronically Signed On 03-17-2019 10:23:28 COMMUNITY RELATIONS DIRECTOR by Sammy Aguilar [email or web address] <ELECTRONICALLY SIGNED> By: Sammy Aguilar MD 03/17/19 1023 0016 0016 Sammy Aguilar MD /EPI
[2019-03-18 04:38] LABS: ABSOLUTE NEUTROPHILS 4.5 thou/uL (1.4-8.2); BASOPHILS 0.9 % (0.0-2.0); EOSINOPHILS 0.7 % (0.0-3.0); HEMATOCRIT 36.1 % (37.0-47.0); HEMOGLOBIN 11.6 gm/dL (12.0-15.0); LYMPHOCYTES 6.7 % (24.0-44.0); MCH 29.7 pg (26.0-34.0); MCV 92.6 fL (80.0-100.0); MONOCYTES 9.4 % (1.0-8.0); PLATELET COUNT 267 thou/uL (150-400); POLYS 82.3 % (36.0-66.0); RDW 17.9 % (10.5-14.5); WBC 5.5 thou/uL (4.0-11.0)
[2019-03-18 04:49] LABS: CALCIUM 9.3 mg/dL (8.5-10.1); CREATININE 1.5 mg/dL (0.6-1.0); DIGOXIN 0.6 ng/mL (0.9-2.0); POTASSIUM 4.8 mmol/L (3.5-5.1)
[2019-03-18 05:37] VITALS: BP 118/72
--- NOTE | 2019-03-18 08:39 | H ---
[facility] [place] [address] HISTORY AND PHYSICAL Name: EDITH OWENS Room #: 215-P ADM IN M.R.#: [id number] Admission: 03/17/19 Attend Phys: Teto Blakely MD Discharge: Date of : 39 Report #: [id number] THIS REPORT FOR: //name// CC: Teto MEJIA physician/PCP DATE OF SERVICE: 03/17/2019 HISTORY OF PRESENT ILLNESS: The patient is an 79-year-old female who was brought to the Emergency Room with altered mental status and increasing confusion. The [facility], but unfortunately it was not helping and she became more confused. For this reason, she was brought to the Emergency Room for further evaluation. The patient herself is not able to provide me with any information. The patient was found to have hyponatremia and possibility of pneumonia. PAST MEDICAL HISTORY: Significant for fracture of the left ankle, status post ORIF. The patient has a history of advanced dementia, gastroesophageal reflux disease, chronic systolic congestive heart failure with ejection fraction of 30%, aortic valve replacement, cardiomyopathy, atrial fibrillation, anxiety disorder, insomnia, hyperlipidemia. MEDICATIONS: The patient's medications were reviewed. ALLERGIES: No known drug allergies. SOCIAL HISTORY: No recent history of smoking, alcohol use or drug use. The patient lives at the [facility]. REVIEW OF SYSTEMS: Unobtainable. PHYSICAL EXAMINATION: VITAL SIGNS: On arrival to the hospital, the patient's temperature is 97.5, pulse 79, respirations 16, blood pressure 110/53. HEAD: Unremarkable. NECK: Supple. LUNGS: Clear to auscultation. CARDIAC: S1, S2. ABDOMEN: Benign. Bowel sounds were positive. EXTREMITIES: +1 edema bilaterally. LABORATORY DATA: Showed white count of 6.4, hemoglobin 11.3, hematocrit 35.1, platelet count 253, neutrophils are 73%. The patient's basic metabolic panel showed sodium of 129, potassium 5.8, chloride 96, bicarbonate 22, BUN 29, creatinine 1.7, glucose 113, calcium 8.3. Urinalysis was basically normal. Drug screen was basically negative. BNP was 16,305. Procalcitonin was 0.06. [address] [address] HISTORY AND PHYSICAL Name: EDITH OWENS Room #: 215-P ADM IN M.R.#: [id number] Admission: 03/17/19 Attend Phys: Teto Blakely MD Discharge: Date of : 38 Report #: [id number] Repeated basic metabolic panel showed sodium of 131, potassium 5.2, chloride 98, bicarbonate 23, BUN 28, creatinine 1.6. A 12-lead EKG showed sinus rhythm with prolonged [place] interval, probable anterior infarct, age indeterminant. Repeated CBC showed white count of 5.8, hemoglobin 11.4, hematocrit 35.8, platelet count 248, neutrophils are 72%. The patient's chest x-ray showed some improvement in the overall appearance of the chest with bilateral small pleural effusions and bilateral lower lung atelectasis/pneumonia, right greater than left. CT of the head showed chronic age-related changes without acute intracranial process identified. ASSESSMENT AND PLAN: 1. Altered mental status. 2. Hyponatremia. 3. Hyperkalemia. 4. Acute kidney injury. 5. Systolic congestive heart failure, chronic. 6. Advanced dementia. 7. Recent urinary tract infection. The patient was admitted to the hospital with the above-mentioned diagnoses. I will continue holding diuretics and potassium supplement in addition to cutting down on the amount of fluid the patient is getting. I will resume the patient's home medications. I will stop the antibiotics because the patient is not having any signs of active infection. I feel that the patient's pleural effusion is related to her congestive heart failure. We will have Physical Therapy and Occupational Therapy to work with the patient. I will continue with bronchodilators. <ELECTRONICALLY SIGNED> By: Teto Blakely MD 03/18/19 0839 1012 1025 Teto Blakely MD /nt
[2019-03-18 08:57] VITALS: BP 115/65
--- NOTE | 2019-03-18 11:07 | 2DMMODE ---
[facility] [place] [address] 2 D/M-MODE ECHOCARDIOGRAM Name: EDITH OWENS Room #: 215-P ADM IN M.R.#: [id number] Admission: 03/17/19 Attend Phys: Teto Blakely MD Discharge: Date of : 39 Report #: [id number] THIS REPORT FOR: //name// APPROVED REPORT Study performed: 03/18/2019 10:26:52 EXAM: Comprehensive 2D, Doppler, and color-flow Echocardiogram Patient Location: Echo lab Room #: [facility] Status: routine BSA: 1.81 HR: 82 bpm BP: 115/65 mmHg Rhythm: Irregular Other Information Study Quality: Good Indications Ventricular tachycardia. Hx: CABG, AV replacement, PAF, HTN. 2D Dimensions RVDd: 48.52 mm IVSd: 8.11 (7-11mm) LVDd: 50.75 mm PWd: 10.31 (7-11mm) LVDs: 47.96 (25-40mm) Aortic Root: 33.24 mm Volumes Left Atrial Volume (Systole) Single Plane 4CH: 69.81 mL Single Plane 2CH: 97.31 mL LA ESV Index: 50.00 mL/m2 Aortic Valve AoV Peak Juanpablo.: 1.56 m/s AO Peak Gr.: 9.91 mmHg LVOT Max P.34 mmHg AO Mean Gr.: 5.44 mmHg AO V2 Mean: 1.08 m/s LVOT Max V: 0.76 m/s AO V2 VTI: 23.89 cm Mitral Valve E/A Ratio: 2.1 [facility] [address] [place] [address] 2 D/M-MODE ECHOCARDIOGRAM Name: EDITH OWENS Room #: 215-P ADM IN ..#: [id number] Admission: 03/17/19 Attend Phys: Teto Blakely MD Discharge: Date of : 38 Report #: [id number] MV Decel. Time: 87.29 ms MV E Max Juanpalbo.: 1.05 m/s MV A Juanpablo.: 0.50 m/s MV PHT: 25.32 ms IVRT: 58.82 ms Pulmonary Valve PV Peak Juanpablo.: 0.69 m/s PV Peak Gr.: 1.94 mmHg Tricuspid Valve TR Peak Juanpablo.: 2.33 m/s RAP Estimate: 15.00 mmHg TR Peak Gr.: 22.00 mmHg PA Pressure: 37.00 mmHg Left Ventricle The left ventricle is normal size. There is normal left ventricular wall thickness. Left ventricular systolic function is severely decreased. LVEF is 25%. Right Ventricle Right ventricle is moderately dilated. Right ventricle is moderately hypokinetic. Atria Left atrium is severely dilated. Right atrium is severely dilated. Aortic Valve Bioprosthetic aortic valve is present. Peak pressure gradient of 9mmHg. Trace aortic regurgitation. Mitral Valve Mitral valve leaflets are moderately thickened. Moderate to severe mitral regurgitation Tricuspid Valve The tricuspid valve is normal in structure. Severe tricuspid regurgitation. Estimated PAP is 35-40mmHg. Pulmonic Valve The pulmonary valve is normal in structure. Mild to moderate pulmonic regurgitation. Great Vessels The aortic root is normal in size. Ascending aorta is not well visualized. IVC is dilated and collapses <50% with [facility] [address] [place] [address] 2 D/M-MODE ECHOCARDIOGRAM Name: EDITH OWENS Room #: 215-P ADM IN M.R.#: [id number] Admission: 03/17/19 Attend Phys: Teto Blakely MD Discharge: Date of : 38 Report #: [id number]. Pericardium There is no pericardial effusion. Left and right pleural effusions noted. <Conclusion> The left ventricle is normal size. LVEF is 25%. Right ventricle is moderately dilated. Right ventricle is moderately hypokinetic. Left atrium is severely dilated. Right atrium is severely dilated. Bioprosthetic aortic valve is present. Peak pressure gradient of 9mmHg. Trace aortic regurgitation. Mitral valve leaflets are moderately thickened. Moderate to severe mitral regurgitation The tricuspid valve is normal in structure. Severe tricuspid regurgitation. Estimated PAP is 35-40mmHg. The pulmonary valve is normal in structure. Mild to moderate pulmonic regurgitation. There is no pericardial effusion. Left and right pleural effusions noted. <ELECTRONICALLY SIGNED> By: Pilo Webb MD 03/18/19 1107 06 06 Pilo Webb MD /INF
[2019-03-18 12:45] VITALS: BP 95/58
[2019-03-18 16:05] VITALS: BP 119/66
[2019-03-18 19:57] VITALS: BP 104/67
[2019-03-19 03:49] VITALS: BP 102/52
[2019-03-19 07:44] VITALS: BP 113/72
[2019-03-19 12:08] VITALS: BP 98/58
[2019-03-19 16:37] VITALS: BP 116/60
[2019-03-19 19:48] VITALS: BP 107/64
[2019-03-20] VITALS: BP 108/53
[2019-03-20 03:50] VITALS: BP 110/63
[2019-03-20 04:35] LABS: CALCIUM 8.9 mg/dL (8.5-10.1); CREATININE 1.8 mg/dL (0.6-1.0); POTASSIUM 3.7 mmol/L (3.5-5.1)
[2019-03-20 04:56] LABS: BASOPHILS 0.5 % (0.0-2.0); HEMATOCRIT 38.5 % (37.0-47.0); HEMOGLOBIN 12.3 gm/dL (12.0-15.0); LYMPHOCYTES 12.8 % (24.0-44.0); MCHC 31.9 g/dL (28.0-37.0); MCV 93.8 fL (80.0-100.0); MONOCYTES 10.9 % (1.0-8.0); PLATELET COUNT 300 thou/uL (150-400); POLYS 74.8 % (36.0-66.0); RBC 4.11 mil/uL (4.20-5.00); RDW 17.4 % (10.5-14.5); WBC 5.3 thou/uL (4.0-11.0)
[2019-03-20] MEDS ORDERED: METOPROLOL SUCC25 M1 PO (07:19)
[2019-03-20] MEDS ORDERED: K-DUR 20 MEQ T20 MEQ PO (07:20)
[2019-03-20] MEDS ORDERED: SEROQUEL 25 MG25 M1 PO (07:20)
[2019-03-20 07:32] VITALS: BP 106/67
[2019-03-20 11:22] VITALS: BP 103/62
== END 2019-03-20 15:42 | DRG 70 ==
LOC: ER 22:17 → 2N 03-17 02:05 → EROBS 03-17 02:05 → 2N 03-17 03:39
PROVIDERS: Emergency Medicine; ADMIT Internal Medicine
DX: G93.41 Metabolic encephalopathy (principal); J18.9 Pneumonia, unspecified organism; I50.23 Acute on chronic systolic (congestive) heart failure; N17.9 Acute kidney failure, unspecified; E87.1 Hypo-osmolality and hyponatremia; I42.9 Cardiomyopathy, unspecified; I47.2 Ventricular tachycardia; F03.91 Unspecified dementia, unspecified severity, with behavioral disturbance; I48.91 Unspecified atrial fibrillation; J44.9 Chronic obstructive pulmonary disease, unspecified; K21.9 Gastro-esophageal reflux disease without esophagitis; F32.9 Major depressive disorder, single episode, unspecified; E87.5 Hyperkalemia; F41.9 Anxiety disorder, unspecified; E78.5 Hyperlipidemia, unspecified; G47.00 Insomnia, unspecified; I25.10 Atherosclerotic heart disease of native coronary artery without angina pectoris; I48.0 Paroxysmal atrial fibrillation; I08.1 Rheumatic disorders of both mitral and tricuspid valves; N18.9 Chronic kidney disease, unspecified; I95.9 Hypotension, unspecified; Z95.1 Presence of aortocoronary bypass graft; Z79.82 Long term (current) use of aspirin; Z79.899 Other long term (current) drug therapy; Z87.891 Personal history of nicotine dependence; Z95.2 Presence of prosthetic heart valve; Z87.440 Personal history of urinary (tract) infections
CPT/HCPCS: 10081